=== PATIENT | female | born 1960 | race Caucasian/White ===

== ENCOUNTER → 2024-10-23 | Outpatient (CLI) | payer BC, SELFPAY ==
--- NOTE | 2024-10-23 07:30 | XR_ITS ---
Examination: Breast ultrasound, unilateral, right complete Date and time of exam: October 23, 2024 at 0729 hrs. Indications: Mammogram February 03, 2024 7 mm oval circumscribed mass upper outer right breast, family history, mother, sister breast cancer Technique: Real-time rodriguez scale ultrasonographic imaging performed right breast including all 4 quadrants as well as nipple retroareolar and axillary region. Findings: 4:00 oval mass lobular margins with calcification 5 x 4 mm 7:00 oval mass circumscribed 6 x 9 mm 9:00 oval mass lobular margins 9 x 7 mm Retroareolar cyst 3 x 2 mm Impression: BI-RADS Category 3: Probably benign findings One additional 6 month right breast sonogram follow-up is needed to document stability of nodules described above
--- NOTE | 2024-10-23 08:00 | XR_ITS ---
Examination: Diagnostic digital mammography, unilateral, right Computer aided detection 3-D breast Tomosynthesis, unilateral Date and time of exam: 11/20/2024, 7:03 AM Comparisons: May 2017 through June 2023 Indications: Follow-up evaluation of mass at 9:00. Technique: Nonmagnified MLO, CC views of the breast have been obtained, reconstructed from 3-D Tomosynthesis images. R2 computer aided detection program utilized for evaluation of suspicious masses and/or abnormal calcifications. 3-D Tomosynthesis images obtained. Technologist: Right breast Findings: There are scattered areas of fibroglandular density. Multiple stable benign appearing oval circumscribed masses some of which are calcified. Otherwise, no evidence of abnormal masses or suspicious calcifications. Impression: BI-RADS category 2: Benign findings Recommend 1 year follow-up mammogram
== END | disposition home or self-care (01) ==
PROVIDERS: PCP Internal Medicine; Referring Provider Internal Medicine; Visit Provider Internal Medicine
DX: R92.321 Mammographic fibroglandular density, right breast (principal)
CPT/HCPCS: 76641; 77061; 77065; G0279

== ENCOUNTER → 2025-07-04 | Outpatient (CLI) | payer BC, SELFPAY ==
--- NOTE | 2025-07-04 08:45 | XR_ITS ---
Examination: Breast ultrasound, unilateral, right complete Date and time of exam: July 04, 2025, 0859 hours INDICATIONS: Right brain sonogram October 23, 2024 4:00 nodule 5 x 4 mm 7:00 nodule 6 x 9 mm 9:00 nodule 9 x 7 mm Technique: Real-time rodriguez scale ultrasonographic imaging performed right breast including all 4 quadrants as well as nipple retroareolar and axillary region. Findings: 4:00 nodule lobular margins 7 x 7 mm 7:00 nodule lobular margins 6 x 6 mm 9:00 nodule lobular margins 8 x 7 mm Retroareolar cyst 2 x 2 millimeter IMPRESSION: BI-RADS Category 3: Probably benign findings Recommend continued 6-month follow-up right breast sonography
== END | disposition home or self-care (01) ==
LOC: CDIM 08:35
PROVIDERS: PCP Internal Medicine; Referring Provider Internal Medicine; Visit Provider Internal Medicine
DX: R92.8 Other abnormal and inconclusive findings on diagnostic imaging of breast (principal)
CPT/HCPCS: 76641